=== PATIENT | male | born 1950 | race Caucasian/White ===

== ENCOUNTER → 2021-06-21 09:01 | Outpatient (CLI) | payer MEDICARE, SELFPAY ==
--- NOTE | 2021-06-21 09:02 | CA_ITS ---
APPROVED REPORT EXAM: Comprehensive 2D, Doppler, and color-flow Echocardiogram Golf Cart Repairer: Perla Washington RVT Ht: 5 ft 6 in Wt: 156lbs BSA: 1.80 BP: 133/74 mmHg Indications: CAD,HTN,HLD 2D Dimensions LVOT 2.03 cm (M/F) 1.5-2.5 LA Volume 40.50 mL LA Volume Index 22.50 mL/m2 (M/F) 16-34 M-Mode Dimensions RVDd 3.08 cm (0.9-2.6) LA Diam 3.80 cm (1.9-4.0) LVDd 5.12 cm (3.5-5.7) Ao Diam 3.70 cm (2.0-3.7) LVDs 3.51 cm (3.5-5.7) IVSd 0.82 cm (0.6-1.1) PWd 0.68 cm (0.6-1.1) EF (Teich) 59.00% FS 31.40% EDV (Teich) 124.90 mL TAPSE 3.13 (<1.7) ESV (Teich) 51.20 mL LV Diastology E Decel Time 217.00 (160-240 msec) E/A Ratio 1.0 MED E' 6.20 (< 7 cm/sec) E'/MED E' Ratio 14.76 (>14) LAT E' 6.50 (<10 cm/sec) E/LAT E' Ratio 14.08 (>14) Aortic Valve AI PHT 1008.00 ms AO Peak GR. 4.10 mmHg Mitral Valve MV E Max Neville. 91.00 (40-130 cm/s) MV A Velocity 88.00 (40-130 cm/s) E/A Ratio 1.04 MV Decel. Time 217.00 (160-240 ms) MV PHT 63.00 ms Pulmonary Valve PV Peak Velocity 66.00 (50-150 cm/s) Tricuspid Valve TR P. Velocity 285.00 cm/s RAP Estimate 10.00 mmHg RVSP 42.50 mmHg Left Ventricle Left atrium is mildly enlarged, left ventricle is normal size, mild concentric left ventricular hypertrophy, visually estimated ejection fraction 55% with no regional wall motion abnormality, grade 2 diastolic dysfunction seen with tissue Doppler evidence of raise left atrial pressure. Right Ventricle Right atrium and right ventricle are mildly enlarged with normal contractility. Aortic Valve Aortic valve is minimally thickened and fibrosed, there is no aortic stenosis or aortic insufficiency. Mitral Valve Mitral valve has mitral calcification, leaflets are minimally thickened, there is mild mitral regurgitation. Tricuspid Valve Tricuspid grossly normal, there is mild tricuspid regurgitation calculated right ventricular systolic pressure is 42 mmHg. Pulmonic Valve Pulmonic valve is poorly visualized. Great Vessels Aortic root is normal size. Pericardium No significant pericardial effusion noted. Conclusion 1. Mild biatrial enlargement, normal left ventricular size, mild concentric left ventricular hypertrophy, visually estimated ejection fraction 55% with no regional wall motion abnormality, grade 2 diastolic dysfunction seen with tissue Doppler evidence of raise left atrial pressure. 2. Mild mitral and tricuspid regurgitation, calculated right ventricular systolic pressure is 42 mmHg. 3. No significant pericardial effusion noted. Electronically signed by : Mick Obrien MD 06/22/2021 13:01:08
== END ==
PROVIDERS: PCP Internal Medicine; Visit Provider Urology
DX: E78.2 Mixed hyperlipidemia (principal); I10 Essential (primary) hypertension; I25.10 Atherosclerotic heart disease of native coronary artery without angina pectoris
CPT/HCPCS: 93306

== ENCOUNTER → 2021-11-19 14:20 | Outpatient (CLI) | payer MEDICARE, SELFPAY ==
--- NOTE | 2021-11-19 14:28 | XR_ITS ---
FINAL REPORT CLINICAL HISTORY: cough since patient had covid October 2021. FINDINGS: Two views of the chest were obtained. The heart size and pulmonary vascularity are within normal limits. The mediastinum is normal. No acute pulmonary abnormality is identified. There is no pneumothorax. The bony thorax is intact. IMPRESSION: No active cardiopulmonary disease. Reviewed, Interpreted and Dictated by Armando Abreu III, MD Transcribed by Lindsay Boateng Authenticated by Armando Abreu III, MD on 11/19/2021 04:01:01 PM [facility]
== END ==
PROVIDERS: Visit Provider Urology
DX: R06.02 Shortness of breath; R05.9 Cough, unspecified; E78.2 Mixed hyperlipidemia; I10 Essential (primary) hypertension; I25.10 Atherosclerotic heart disease of native coronary artery without angina pectoris
CPT/HCPCS: 71046

== ENCOUNTER → 2022-12-06 11:20 | Outpatient (CLI) | payer MEDICARE, SELFPAY ==
--- NOTE | 2022-12-06 | CA_ITS ---
APPROVED REPORT Exam: Pharmacologic Technologist: Annamarie Stahl, Ht: 5 ft 6 in Wt: 163 lbs BSA: 1.83 m2 HR: 50 bpm BP: 165/71 mmHg Medical History Medical History: Hyperlipidemia, HTN, CAD s/p stent, SOB Medications: HCTZ,,,,, Lipitor,,,,, Vit D3,,,,, Plavix,,,,, BisOPROLOL,,,,, Panoprazole,,,,, Allergies: sulfa Cardiac Risk Factors: HTN, Hyperlipidemia, SOB Stress Test Details Test: LEXISCAN HR Resting HR: 51 bpm Max Heart Rate (APMHR): 146.588055 bpm Max HR Achieved: 92 bpm Target HR (85% APMHR): 124.323423 bpm % of APMHR: 63.01 Recovery HR: 67 bpm BP Resting BP: 165.0/71.0 mmHg Max BP: 165.0/71.0 mmHg Recovery BP: 137.0/51.0 mmHg ECG Clinical Exercise duration: 04:11 min Highest Stage Achieved: Exercise capacity: 1.0 METs Stress ECG Conclusion during infusion patient had nausea. no chest pain or soa. pac/pvc. <1.5mm st changes Test Summary REST . . . . . . . Sitting REST 12:51 . . 51 . 165/ 71 . . Stage 1 . . . . . . . Myoview Injected Stage 1 01:00 . . 68 . . . . Stage 2 01:00 . . 78 . . . . Stage 3 01:00 . . 87 . 135/ 60 . . Stage 4 01:00 . . 82 . . . . Stage 4 01:11 . . 74 . . . Stop exercise at 04:11 RECOVERY 01:00 . . 74 . 145/ 70 . . RECOVERY 02:00 . . 64 . 145/ 70 . . RECOVERY 03:00 . . 63 . 137/ 51 . . RECOVERY 04:00 . . 68 . 137/ 51 . . RECOVERY 04:39 . . 67 . 155/ 63 . . Electronically signed by : Mick Obrien MD 12/06/2022 16:40:52
--- NOTE | 2022-12-06 11:20 | NM_ITS ---
APPROVED REPORT Exam: Nuclear Stress Test Indication: CAD, 4 STENTS, HTN, HYPERLIPIDEMIA, C.P., SOB Patient Location: Outpatient Stress Tech: Donna Stahl [place] Tech:FROY Muñoz RT (R)(N)(M) Ht: 5 ft 6 in Wt: 160 lbs HR: 50 bpm BP: 165/71 mmHg BSA: 1.82 m2 TID: 0.93 BMI: 25.8 History: CAD, 4 STENTS, HTN, HYPERLIPIDEMIA, C.P., SOB Procedure: Patient received 0.4 mg of intravenous Lexiscan, resting heart rate 50 bpm, resting blood pressure 165/71 mmHg, with Lexiscan maximum heart rate achieved was 79 bpm which is Less than 85 % of the maximum predicted heart rate and blood pressure was 135/60 mmHg. With Lexiscan, patient denied any complaint of chest pain. Electrocardiogram Resting electrocardiogram shows sinus rhythm, with Lexiscan there is frequent premature ventricular complexes present, less than 1.[address] segment depression noted from the baseline EKG. The EKG portion of the Lexiscan is nondiagnostic. Cardiac Stress and Resting SPECT Images: Cardiac Stress and Resting SPECT images were obtained using technetium 99m Myoview 32.4 mCi stress and 10.31 mCi at rest. Gated SPECT for analysis of segmental wall motion and calculation of the ejection fraction also done. Prone images were also obtained. Cardiac stress and resting SPECT images show a fixed defect involving the apex consistent with area of myocardial scarring, in addition there is a fixed defect in the inferior wall which normalizes on the prone images is likely secondary to soft tissue attenuation. Computer derived ejection fraction is 45% with mild apical hypokinesis, right ventricle is mildly enlarged with normal contractility. Conclusion: 1. The EKG portion of the Lexiscan is nondiagnostic. 2. Scintigraphic evidence of myocardial scarring 8 apex without significant joe-infarct ischemia in that area. The fixed defect in the inferior wall is likely secondary to soft tissue attenuation. Computer derived ejection fraction is 45% with mild apical hypokinesis, right ventricle is mildly enlarged with normal contractility. 3. Abnormal Lexiscan Myoview study. Electronically signed by : Mick Obrien MD 12/06/2022 16:44:04
--- NOTE | 2022-12-06 12:27 | CA_ITS ---
APPROVED REPORT EXAM: Comprehensive 2D, Doppler, and color-flow Echocardiogram 3D Animator: Merry Ac RDCS Ht: 5 ft 6 in Wt: 163lbs BSA: 1.83 BP: 136/56 mmHg Indications: SOA,CP,BRADYCARDIA,CAD 2D Dimensions LVOT 2.19 cm (M/F) 1.5-2.5 M-Mode Dimensions RVDd 2.21 cm (0.9-2.6) LA Diam 3.75 cm (1.9-4.0) LVDd 6.26 cm (3.5-5.7) Ao Diam 3.55 cm (2.0-3.7) LVDs 4.65 cm (3.5-5.7) IVSd 0.64 cm (0.6-1.1) PWd 0.92 cm (0.6-1.1) EF (Teich) 49.70% FS 25.70% EDV (Teich) 198.30 mL ESV (Teich) 99.80 mL LV Diastology E Decel Time 157.00 (160-240 msec) E/A Ratio 1.0 MED E' 9.10 (< 7 cm/sec) E'/MED E' Ratio 9.48 (>14) LAT E' 8.60 (<10 cm/sec) E/LAT E' Ratio 10.03 (>14) Mitral Valve MV E Max Neville. 86.00 (40-130 cm/s) MV A Velocity 85.00 (40-130 cm/s) E/A Ratio 1.02 MV Decel. Time 157.00 (160-240 ms) MV PHT 46.00 ms Tricuspid Valve TR P. Velocity 281.00 cm/s RAP Estimate 10.00 mmHg RVSP 41.50 mmHg Left Ventricle Left atrium is mildly enlarged, left ventricle is normal size mild concentric left ventricular hypertrophy, estimated ejection fraction 55% with no regional wall motion abnormality, grade 2 diastolic dysfunction seen without tissue Doppler evidence of raise left atrial pressure. Right Ventricle Right atrium and right ventricle are mildly enlarged with normal contractility. Aortic Valve Aortic valve is minimally thickened and fibrosed there is no aortic stenosis or aortic insufficiency. Mitral Valve Mitral valve has mitral calcification, there is no mitral stenosis, there is mild mitral regurgitation. Tricuspid Valve Tricuspid valve grossly normal, there is mild tricuspid regurgitation, calculated right ventricular systolic pressure 38 mmHg. Pulmonic Valve Pulmonic valve is poorly visualized. Great Vessels Aortic root is normal size. Inferior vena cava is poorly visualized. Pericardium No significant pericardial effusion noted. Conclusion 1. Mild biatrial enlargement, normal left ventricular size, mild concentric left ventricular hypertrophy, estimated ejection fraction 55% with no regional wall motion abnormality, grade 2 diastolic dysfunction seen without tissue Doppler evidence of raise left atrial pressure. 2. Mildly enlarged right ventricle with normal contractility. 3. Mild mitral and tricuspid regurgitation, calculated right ventricular systolic pressure 38 mmHg. 4. No significant pericardial effusion noted. 5. Inferior vena cava is poorly visualized. Electronically signed by : Mick Obrien MD 12/06/2022 16:33:00
== END ==
PROVIDERS: PCP Family Medicine; Visit Provider Nurse Practitioner Family
DX: E78.2 Mixed hyperlipidemia (principal); I10 Essential (primary) hypertension; R06.02 Shortness of breath; I20.8 Other forms of angina pectoris
CPT/HCPCS: 78452; 93017; 93306; A9502; J2785

== ENCOUNTER 2022-12-20 08:41 | Day surgery (SDC) | payer MEDICARE, SELFPAY ==
[2022-12-20] VITALS (13 sets, daily range): BP systolic 128–200; BP diastolic 47–158; PULSE 51–81; RESP 16–20; TEMP 36.1–36.9; O2SAT 91–100; BMI 26.6
--- NOTE | 2022-12-20 07:29 | IR_ITS ---
APPROVED REPORT Patient Location: Outpatient PROCEDURES Left heart catheterization Left ventriculogram Selective coronary angiogram FFR to the LAD INDICATION Coronary artery disease, Angina pectoris, Angiographic ambiguous coronary artery disease, Abnormal Myoview Informed consent was obtained prior to the procedure. COMPLICATIONS None Estimated Blood Loss: Less than 10 mls TECHNIQUE One percent lidocaine was used to anesthetize the right groin. The right femoral artery was accessed via the Seldinger technique. A 4-Czech sheath was placed in the right femoral artery. The JL-4 and JR-4 catheter was also used to perform left heart catheterization left ventriculogram and selective coronary angiogram. At the end the diagnostic angiogram therapeutic heparin was administered giving a therapeutic ACT and the 4 Czech sheath was exchanged for a 6 Czech sheath. A JL 5 guide catheter was placed in the left main artery and a Choice PT extra-support wire was placed down the LAD. An FFR nevus catheter was equalized in the left main artery and then advanced. Adenosine was infused per protocol and the FFR index dropped to 0.84. The procedure was repeated and the FFR dropped to 0.83. After completion of the FFR procedure the apparatus was removed the groin was reprepped closure change sheath was removed and hemostasis was achieved using Perclose device patient was transferred the postop putting in stable condition ANGIOGRAPHIC RESULTS The left main artery Normal The left anterior descending artery Has an ostial 20 to 30% stenosis followed by a proximal 40 to 50% stenosis followed by mid vessel stent which is widely patent with minimal in-stent restenosis The circumflex artery Is a large codominant vessel and has a stent in the proximal through mid segment which is widely patent free of in-stent restenosis with excellent proximal distal transitioning The right coronary artery Is a dominant vessel and has proximal 30% stenoses with distal 10% luminal irregularities The RAMOS ventriculogram reveals Preserved 55% The left ventricular end-diastolic pressure 10 mmHg IMPRESSION Coronary artery disease as described above FFR index of 0.83 in the LAD Preserved ejection fraction Normal left ventricular end-diastolic pressure PLAN 1. Continue medical management 2. Maximize antianginal medication Electronically signed by : Sheldon Ovalle MD 12/20/2022 12:16:42
[2022-12-20 09:50] LABS: Basophils # 0.1 K/mm3 (0-0.2); Basophils % 1.1 % (0.1-2.0); Eosinophils # 0.1 K/mm3 (0.0-0.4); Eosinophils % 1.2 % (0.1-12.0); Hematocrit 43.9 % (42.0-52.0); Hemoglobin 14.3 g/dL (14.1-18.0); Lymphocytes # 1.6 K/mm3 (0.7-4.5); Lymphocytes % 21.4 % (10-50); Mean Corpuscular HGB Conc 32.6 g/dL (31.8-35.4); Mean Corpuscular Hemoglobin 29.8 pg (27.0-31.2); Mean Corpuscular Volume 91.6 fl (80-94); Mean Platelet Volume 8.1 fl (7.4-10.4); Monocytes # 0.5 K/mm3 (0.1-1.0); Monocytes % 7.1 % (1.7-9.3); Neutrophils # 5.1 K/mm3 (1.8-7.8); Neutrophils % 69.2 % (37.0-80.0); Platelet Count 283 K/mm3 (142-424); Red Cell Distribution Width 13.5 % (11.5-17.5); White Blood Count 7.3 K/mm3 (4.8-10.8)
[2022-12-20 09:56] LABS: Blood Urea Nitrogen 20 mg/dl (9-20); Calcium 9.1 mg/dl (8.4-10.2); Carbon Dioxide 30 mmol/L (22.0-30.0); Chloride 102 mmol/L (98-107); Creatinine Clearance Estimated 53 mL/min (50-200); Estimated Glomerular Filt Rate 54 ml/min (>60); GFR (African American) 65 ML/MIN (>60); Glucose 100 mg/dl (74-100); Sodium 138 mmol/L (136-145)
[2022-12-20 13:27] LABS: CATHL Activated Clotting Time 386 SEC (74-125)
== END 2022-12-20 16:02 | disposition home or self-care (01) ==
PROVIDERS: Visit Provider Internal Medicine
DX: E78.2 Mixed hyperlipidemia (principal); I10 Essential (primary) hypertension; I25.118 Atherosclerotic heart disease of native coronary artery with other forms of angina pectoris; I49.8 Other specified cardiac arrhythmias; R06.02 Shortness of breath; Z79.899 Other long term (current) drug therapy; Z79.02 Long term (current) use of antithrombotics/antiplatelets
CPT/HCPCS: 80048; 85025; 85347; 93225; 93458; 93571; 99152; 99153; C1725; C1760; C1769; C1894; J0153; J1644; Q9967